=== PATIENT | male | born 1970 | race African-American/Black ===

== ENCOUNTER 2023-12-05 06:04 | Emergency (ER) | payer OTHER ==
[~2023-12-05] VITALS: Ht 175.3 cm; Wt 66.0 kg
[2023-12-05] MEDS ORDERED: TOPUD PO (06:07)
[2023-12-05 06:09] VITALS: BP 153/93; PULSE 84; RESP 14; TEMP 98.4; O2SAT 98
== END 2023-12-05 07:00 | disposition home or self-care (01) ==
LOC: ER 06:04
DX: R45.1 Restlessness and agitation (principal); F31.9 Bipolar disorder, unspecified; F20.9 Schizophrenia, unspecified; F12.10 Cannabis abuse, uncomplicated; Y08.89XA Assault by other specified means, initial encounter; Y93.89 Activity, other specified; Y92.89 Other specified places as the place of occurrence of the external cause; Y99.8 Other external cause status
CPT/HCPCS: 99283